=== PATIENT | male | born 1995 | race Caucasian/White ===

== ENCOUNTER 2020-01-31 07:22 | Inpatient (IN) | payer OTHER, SELFPAY ==
[~2020-01-31] VITALS: Ht 172.7 cm; Wt 104.3 kg
[2020-01-31 07:33] VITALS: BP 101/67
[2020-01-31] MEDS ORDERED: LORazepam 2 MG/ML VIAL IM ONE (08:00)
--- NOTE | 2020-01-31 08:00 | NUR ---
C/O ANXIETY ATTACK. STATES HE HAS A NON-PRODUCTIVE COUGH AND HE HAS BEEN MORE CONCERNED ABOUT COVID. PT STATES HE HAS AN APPT FOR COVID TESTING TODAY THAT HE NEEDS DONE FOR WORK.DENIES CP/SOB. DENIES COVID EXPOSURE TO HIS KNOWLEDGE. PT SPEAKING IN FAST SENTENCES HAVING TO CATCH BREATH BETWEEN SENTENCE. NO PMH NKA
--- NOTE | 2020-01-31 08:01 | NUR ---
LUNGS CLEAR BILTERALLY. PT PLACED ON 2 L NC
--- NOTE | 2020-01-31 08:12 | NUR ---
RT AT BEDSIDE FOR ABGS
--- NOTE | 2020-01-31 08:12 | NUR ---
ATIVAN IM ADMINISTERED
[2020-01-31] MEDS ORDERED: ALBUTEROL HFA MDI 90 MCG/ACTUATION 8 GM INH ONE (08:35)
--- NOTE | 2020-01-31 08:47 | NUR ---
LAM CALLED FOR UPDATE [phone]
--- NOTE | 2020-01-31 08:55 | NUR ---
CALLED RT FOR PTS BREATHING TX, STATED SHE WOULD GRAB SPACER AND BE RIGHT OVER.
--- NOTE | 2020-01-31 08:58 | NUR ---
RT AT BEDSIDE FOR BREATHING TX
--- NOTE | 2020-01-31 09:31 | NUR ---
PT RETURNED FROM CT SCAN, PLACED IN COVID ROOM 10, AND SWABBED
--- NOTE | 2020-01-31 09:44 | NUR ---
PT STATES RELIEF FROM BREATHING TX AND ATIVAN
[2020-01-31] MEDS ORDERED: AZITHROMYCIN 500 MG in DEXTROSE 5% 250 ML IV ONE (09:55)
[2020-01-31] MEDS ORDERED: AZITHROMYCIN 500 MG INJ VIAL IV ONE (10:01)
--- NOTE | 2020-01-31 10:25 | NUR ---
LAB AT BEDSIDE.
[2020-01-31 10:39] LABS: BASOPHILS # (AUTO) 0.1 K/uL (0.00-0.22); BASOPHILS % (AUTO) 0.7 % (0.0-2.0); HEMATOCRIT 43.1 % (36-52); HEMOGLOBIN 14.4 g/dL (12.0-18.0); LYMPHOCYTES # (AUTO) 1.1 K/uL (2.0-11.5); LYMPHOCYTES % (AUTO) 14.5 % (20.5-51.1); MEAN CORPUSCULAR HEMOGLOBIN 29 pg (27-31); MEAN CORPUSCULAR HGB CONC 34 g/dL (33-37); MEAN CORPUSCULAR VOLUME 85.7 fL (80-94); MONOCYTES # (AUTO) 0.6 K/uL (0.8-1.0); MONOCYTES % (AUTO) 7.4 % (1.7-9.3); NEUTROPHILS # (AUTO) 5.9 K/uL (1.8-7.7); NEUTROPHILS % (AUTO) 77.4 % (42.2-75.2); PLATELET COUNT (AUTO) 233 K/uL (140-450); RED BLOOD CELL COUNT(AUTO) 5.03 MIL/uL (4.20-6.10); WHITE BLOOD COUNT (AUTO) 7.6 K/uL (4.8-10.8)
--- NOTE | 2020-01-31 10:48 | NUR ---
IV INSERTED AND LABS DRAWN BEDSIDE.
--- NOTE | 2020-01-31 10:48 | NUR ---
PT REPORTS THAT HE TAKE NO HOME MEDICATIONS
[2020-01-31 10:55] LABS: PROTHROMBIN TIME 9.9 secs (10.8-13.4)
[2020-01-31 10:57] LABS: BILIRUBIN,URINE NEGATIVE (NEGATIVE); BLOOD, URINE NEGATIVE (NEGATIVE); COLOR,URINE AMBER (YELLOW); LEUKOCYTE ESTERASE ,URINE NEGATIVE (NEGATIVE); NITRITE, URINE NEGATIVE (NEGATIVE); PH,URINE 7.5 (5.0-9.0); UGLUCOSE NEGATIVE (NEGATIVE)
[2020-01-31 11:00] LABS: APPEARANCE,URINE SLIGHTLY HAZY (CLEAR)
[2020-01-31 11:02] LABS: RBC,URINE 0-5 /HPF (0-5); WBC,URINE 0-5 /HPF (0-5)
[2020-01-31 11:06] LABS: ALBUMIN 3.5 g/dL (3.4-5.0); ANION GAP 15.6 (8-16); CARBON DIOXIDE 25.2 mmol/L (21-32); CREATININE 1.1 mg/dL (0.6-1.3); POTASSIUM 3.8 mmol/L (3.5-5.1); TOTAL BILIRUBIN 0.3 mg/dL (0.0-1.0)
[2020-01-31 11:11] LABS: FIBRINOGEN 500 mg/dL (200-400)
[2020-01-31 11:12] LABS: RSV NEGATIVE (NEGATIVE)
[2020-01-31 11:15] LABS: C-REACTIVE PROTEIN QUANT 8.1 mg/dL (0.0-0.9)
[2020-01-31 12:26] LABS: LACTATE DEHYDROGENASE 332 U/L (85-227)
[2020-01-31] MEDS ORDERED: MORPHINE SULFATE 2 MG/ML SYR IVP PRN (14:10)
[2020-01-31] MEDS ORDERED: ONDANSETRON 4 MG/2 ML VIAL IVP PRN (14:10)
[2020-01-31] MEDS ORDERED: ALBUTEROL 0.083% 2.5 MG/3 ML NEBU INH PRN (14:10)
[2020-01-31] MEDS ORDERED: cefTRIAXone 1,000 MG VIAL ONE (14:50)
--- NOTE | 2020-01-31 14:55 | NUR ---
ROCEPHIN IVPB STARTED
--- NOTE | 2020-01-31 16:00 | NUR ---
PT ALERT AND AWAKE. VS STABLE. EATING FOOD BROUGHT IN BY . DENIES PAIN.
--- NOTE | 2020-01-31 19:15 | NUR ---
REPORT RECEIVED FROM GIRMA ZALDIVAR
--- NOTE | 2020-01-31 19:15 | NUR ---
Haroldo moran in [facility] - 01/31/20 at 1915 by [email or web address] REPORT RECEIVED ELYROM,
--- NOTE | 2020-01-31 19:17 | NUR ---
REPORT TO DEREJE ZALDIVAR, TRANSFER OF CARE
[2020-01-31 19:31] LABS: D-DIMER < 150 ng/ml (0-400)
[2020-01-31 22:10] VITALS: BP 113/73
--- NOTE | 2020-01-31 22:10 | NUR ---
Patient will be admitted to care of DR MILLIGAN. Admited to TELE. Will go to room 119A. Belongings list completed. Report to KATERYNA ZALDIVAR.
--- NOTE | 2020-01-31 22:10 | NUR ---
RECEIVED PT FROM ER VIA SHANTI , REPORT GIVEN AT BED SIDE, PT IS AAOX4 AMBULATORY ON 2 LTS VIA MN, ON TELEMETRY ST, ,113 HR, HL ON LEFT HAND GAUGE # 20, PT IS ORIENTED TO THE FLOOR CALL LIGHT WITHIN REACH. MRSA NARES SWAB PROTOCOL TAKEN AND SENT TO LAB
--- NOTE | 2020-02-01 01:00 | NUR ---
PT HAS BEEN MONITORING CLOSE NOT SOB NOTED ON [id number] ST , NOT SOB NOTED
[2020-02-01 04:00] VITALS: BP 106/54
[2020-02-01] MEDS: ACETAMINOPHEN 325 MG TAB PO PRN ×2 (04:28→11:55)
--- NOTE | 2020-02-01 04:30 | NUR ---
PT HAS FEVER 101 TYLENOL GIVEN AND WILL BE CLOSE MONITORING ON TELE ST
--- NOTE | 2020-02-01 06:00 | NUR ---
PT SLEEPING WELL NOT PAIN , KPT WILL BE ENDORSED TO DAY SHIFT NURSE FOR CONTINUE OF CARE DENIES ANY PAIN NOT FEVER
--- NOTE | 2020-02-01 07:20 | NUR ---
RECEIVED REPORT FROM NIGHTSHIFT NURSE. PT RESTING IN BED ABLE TO MAKE NEEDS KNOWN. RESPIRATIONS EVEN AND UNLABORED WITH NO SOB OR RESPIRATORY DISTRESS. SKIN WARM AND DRY TO TOUCH. IV SITE IN L HAND 20G IS CLEAN, DRY, AND INTACT. SAFETY MEASURES IN PLACE. WILL CONTINUE TO MONITOR
[2020-02-01 07:59] LABS: BASOPHILS % (AUTO) 0.3 % (0.0-2.0); HEMATOCRIT 43.8 % (36-52); HEMOGLOBIN 14.4 g/dL (12.0-18.0); LYMPHOCYTES # (AUTO) 1.9 K/uL (2.0-11.5); LYMPHOCYTES % (AUTO) 21.1 % (20.5-51.1); MEAN CORPUSCULAR HEMOGLOBIN 29 pg (27-31); MEAN CORPUSCULAR HGB CONC 33 g/dL (33-37); MEAN CORPUSCULAR VOLUME 86.8 fL (80-94); MONOCYTES # (AUTO) 0.5 K/uL (0.8-1.0); MONOCYTES % (AUTO) 5.4 % (1.7-9.3); NEUTROPHILS # (AUTO) 6.7 K/uL (1.8-7.7); NEUTROPHILS % (AUTO) 73.2 % (42.2-75.2); PLATELET COUNT (AUTO) 242 K/uL (140-450); RED BLOOD CELL COUNT(AUTO) 5.05 MIL/uL (4.20-6.10); RED CELL DISTRIBUTION WIDTH 14.2 % (11.6-13.7); WHITE BLOOD COUNT (AUTO) 9.1 K/uL (4.8-10.8)
[2020-02-01 08:00] VITALS: BP 137/84
[2020-02-01 08:10] LABS: CARBON DIOXIDE 28.8 mmol/L (21-32); CREATININE 1.3 mg/dL (0.6-1.3); POTASSIUM 3.8 mmol/L (3.5-5.1)
[2020-02-01] MEDS ORDERED: ENOXAPARIN 40 MG/0.4 ML SYR SUBQ SCH (09:00)
[2020-02-01] MEDS: AZITHROMYCIN 500 MG in DEXTROSE 5% 250 ML IV SCH (09:00)
--- NOTE | 2020-02-01 10:01 | NUR ---
CRIMINAL INVESTIGATOR NOTE: Patient's Orientation Person Situation Place Time Information Provided By ANTWON TATE Comments SW WAS UNABLE TO MEET PATIENT AT BEDSIDE DUE TO MEDICAL CONDITION. Assistant Professor Surgical Technology, Realtionship and Phone Number ANTWON TATE MOTHER [phone] Healthcare Power of Laundry Machine Tender No Does Patient Have a POLST No Identifying Problems No Social Work Triggers Is A Social Work Consult Needed No Mandate Report Filed No Explanation Of Identifying Problems PATIENT IS A 25-YEAR-OLD MALE ADMITTED FOR MULTIFOCAL PNEUMONIA. PATIENT HAS PMHX OF ASTHMA. Admitted From Home Pre-Admission Level Of Functioning Status Independent/Ambulatory Prior Resources/Services Used In Last 12 Months No Prior Resources Used Prior DME No Prior DME Used Living Situation Apartment Lives With Family Patient Had Caregiver No Home Support No Caregiver Issues Financial Issues No Known Financial Issue Referral To The Financial Counselor Needed No Factors/Needs No D/C Needs Identified Pt/Rep Participated In Discharge Plan Yes Patient/Family Agress With Discharge Plan Yes Discharge Plan Comments TENTATIVE DISCHARGE PLAN IS FOR PATIENT TO RETURN HOME. DC Plan Status Initiated
--- NOTE | 2020-02-01 10:15 | NUR ---
ADMINISTERED SCHED MED PRESCRIBED PER MD ORDER. PT TOLERATED WELL. MEDICATION EDUCATION PERFORMED. PT VERBALIZED UNDERSTANDING. SAFETY MEASURES IN PLACE. WILL CONTINUE TO MONITOR
--- NOTE | 2020-02-01 10:26 | NUR ---
PATIENT HAS BEEN SCREENED AND CATEGORIZED LOW NUTRITION RISK. PATIENT WILL BE SEEN WITHIN 7 DAYS OF ADMISSION. 02/07/[address]
[2020-02-01 12:00] VITALS: BP 129/84
--- NOTE | 2020-02-01 12:02 | NUR ---
PT HAS 101.9 FEVER. TYLENOL ADMINISTERED PRESCRIBED PER MD ORDER. PT TOLERATED WELL. MEDICATION EDUCATION PERFORMED. PT VERBALIZED UNDERSTANDING. SAFETY MEASURES IN PLACE. WILL CONTINUE TO MONITOR
[2020-02-01] MEDS ORDERED: ALBUTEROL HFA MDI 90 MCG/ACTUATION 8 GM INH PRN (12:55)
[2020-02-01] MEDS: predniSONE 20 MG TAB PO SCH (13:03)
--- NOTE | 2020-02-01 13:03 | NUR ---
ADMINISTERED SCHED MED PRESCRIBED PER MD ORDER. PT TOLERATED WELL. MEDICATION EDUCATION PERFORMED. PT VERBALIZED UNDERSTANDING. SAFETY MEASURES IN PLACE. WILL CONTINUE TO MONITOR
--- NOTE | 2020-02-01 13:33 | NUR ---
RECEIVED CALL FROM CHEMISTRY THAT PATIENT IS POSITIVE FOR COVID 19. REPORTED TO DR. MILLIGAN AND RECEIVED ORDERS. PT IS AWARE OF RESULTS WELL. SAFETY MEASURES IN PLACE. WILL CONTINUE TO MONITOR
[2020-02-01] MEDS ORDERED: ENOXAPARIN 60 MG/0.6 ML SYR SUBQ SCH (14:03)
--- NOTE | 2020-02-01 14:52 | NUR ---
ADMINISTERED SCHED MED PRESCRIBED PER MD ORDER. PT TOLERATED WELL. MEDICATION EDUCATION PERFORMED. PT VERBALIZED UNDERSTANDING. SAFETY MEASURES IN PLACE. WILL CONTINUE TO MONITOR
[2020-02-01 16:00] VITALS: BP 125/74
[2020-02-01] MEDS: HYDROcodone/APAP 5/325 MG 1 TAB TAB PO PRN (16:18)
--- NOTE | 2020-02-01 16:18 | NUR ---
PT COMPLAINED OF A MODERATE HEADACHE. PRN NORCO ADMINISTERED PRESCRIBED PER MD ORDER. PT TOLERATED WELL. MEDICATION EDUCATION PERFORMED. PT VERBALIZED UNDERSTANDING. SAFETY MEASURES IN PLACE. WILL CONTINUE TO MONITOR
--- NOTE | 2020-02-01 18:04 | NUR ---
PT RESTING IN BED. ABLE TO MAKE NEEDS KNOWN. RESPIRATIONS EVEN AND UNLABORED WITH NO SOB OR RESPIRATORY DISTRESS. SAFETY MEASURES IN PLACE. WILL CONTINUE TO MONITOR
--- NOTE | 2020-02-01 19:14 | NUR ---
ENDORSED TO NIGHTSHIFT NURSE FOR CONTINUITY OF CARE. PT IS STABLE
--- NOTE | 2020-02-01 19:15 | NUR ---
RECEIVED PT ON BED, AAOX4, ABLE TO MAKE NEEDS KNOWN, NO RESP DISTRESS NOTED, ON O2 AT 2L NC WITH SAT-94%, IVF INFUSING WELL AT TKO RATE, DENIES ANY PAIN, MAINTAINED ON DROPLET ISOLATION FOR COVID POSITIVE, PT WEARING FACE MASK, CALL LIGHT WITHIN REACH.
[2020-02-01 20:00] VITALS: BP 98/56
[2020-02-01] MEDS: ENOXAPARIN 100 MG/ML SYR SUBQ SCH (20:22)
--- NOTE | 2020-02-01 21:18 | NUR ---
RECEIVED REPORT FROM AM SHIFT. PT SEEN AND ASSESSED. PT IS IN NO APPARENT RESPIRATORY DISTRESS AT THIS TIME. PT ON 2L NC WITH SPO2 OF 92% AND CLEAR/DIMINISHED BS ON AUSCULTATION. PRN TX NOT INDICATED AT THIS TIME. PT WAS INFORMED TO CALL FOR PRN TX IF EXPERIENCING SOB. WILL CONTINUE TO MONITOR PT. PT WAS ASSISTED INTO PRONE POSITION. RN NOTIFIED.
[2020-02-02] VITALS: BP 114/73
--- NOTE | 2020-02-02 01:23 | NUR ---
ROUNDS MADE, SEEN PT SLEEPING, NO RESP DISTRESS NOTED, NO SIGNS OF PAIN, MONITORED CLOSELY.
[2020-02-02] MEDS: HYDROcodone/APAP 5/325 MG 1 TAB TAB PO PRN (02:43)
--- NOTE | 2020-02-02 02:45 | NUR ---
PT SEEN AWAKE SITTING UP ON BED, COMPLAINING OF HEADACHE AND REQUESTING FOR INHALER, NO RESP DISTRESS NOTED, MEDICATED WITH NORCO FOR HEADACHE AND NOTIFIED RT SABIANIST FOR THE INHALER, MONITORED CLOSELY.
[2020-02-02 04:00] VITALS: BP 106/57
[2020-02-02] MEDS: ACETAMINOPHEN 325 MG TAB PO PRN ×2 (04:02→09:39)
--- NOTE | 2020-02-02 04:02 | NUR ---
PT SLEEPING, EASILY AROUSABLE, VITAL SIGNS TAKEN, TEMP-100.2, DENIES ANY PAIN, NO SOB NOTED, O2 SAT-91% ON 2L NC, MEDICATED PRN WITH TYLENOL, MONITORED CLOSELY.
--- NOTE | 2020-02-02 06:00 | NUR ---
SEEN PT SLEEPING, NO SIGNS OF DISTRESS, CONTINUE ON O2 2L NC, MONITORED CLOSELY.
--- NOTE | 2020-02-02 07:12 | NUR ---
PT SLEEPING, NO SIGNS OF DISTRESS, REPORT GIVEN TO ZEN HOWARD FOR CONTINUITY OF CARE.
--- NOTE | 2020-02-02 07:17 | NUR ---
RECEIVED REPORT FROM NIGHTSHIFT NURSE. PT RESTING IN BED. ABLE TO MAKE NEEDS KNOWN. RESPIRATIONS EVEN AND UNLABORED WITH NO SOB OR RESPIRATORY DISTRESS. SKIN WARM AND DRY TO TOUCH. IV SITE IN L HAND 22G IS CLEAN, DRY, AND INTACT. SAFETY MEASURES IN PLACE. WILL CONTINUE TO MONITOR
[2020-02-02 08:00] VITALS: BP 108/65
[2020-02-02] MEDS: AZITHROMYCIN 500 MG in DEXTROSE 5% 250 ML IV SCH (09:37)
[2020-02-02] MEDS: predniSONE 20 MG TAB PO SCH (09:39)
[2020-02-02] MEDS: ENOXAPARIN 100 MG/ML SYR SUBQ SCH ×2 (09:40→20:04)
--- NOTE | 2020-02-02 09:40 | NUR ---
ADMINISTERED SCHED MED PRESCRIBED PER MD ORDER. PT TOLERATED WELL. MEDICATION EDUCATION PERFORMED. PT VERBALIZED UNDERSTANDING. SAFETY MEASURES IN PLACE. WILL CONTINUE TO MONITOR
--- NOTE | 2020-02-02 11:15 | NUR ---
PT CALLED AND NEEDED SOME MORE WATER. PT RESTING IN BED. ABLE TO MAKE NEEDS KNOWN. RESPIRATIONS EVEN AND UNLABORED WITH NO SOB OR RESPIRATORY DISTRESS. SKIN WARM AND DRY TO TOUCH. SAFETY MEASURES IN PLACE. WILL CONTINUE TO MONITOR
[2020-02-02 12:00] VITALS: BP 98/54
--- NOTE | 2020-02-02 13:05 | NUR ---
HOURLY ROUNDING. PT RESTING IN BED. ABLE TO MAKE NEEDS KNOWN. RESPIRATIONS EVEN AND UNLABORED WITH NO SOB OR RESPIRATORY DISTRESS. SKIN WARM AND DRY TO TOUCH. SAFETY MEASURES IN PLACE. WILL CONTINUE TO MONITOR
--- NOTE | 2020-02-02 15:10 | NUR ---
ADMINISTERED SCHED MED PRESCRIBED PER MD ORDER. PT TOLERATED WELL. MEDICATION EDUCATION PERFORMED. PT VERBALIZED UNDERSTANDING. SAFETY MEASURES IN PLACE. WILL CONTINUE TO MONITOR
[2020-02-02 16:00] VITALS: BP 124/68
--- NOTE | 2020-02-02 16:45 | NUR ---
STARTED WEANING PT OFF OF OXYGEN ACCORDING TO DR. MILLIGAN ORDER'S. TOOK NC OFF PATIENT FOR 15 MIN AND PATIENT STAYED BETWEEN 87-91%. PUT PT ON 1L NC. SAFETY MEASURES IN PLACE. WILL CONTINUE TO MONITOR
--- NOTE | 2020-02-02 19:10 | NUR ---
ENDORSED TO NIGHTSHIFT FOR CONTINUITY OF CARE. PT IS STABLE
--- NOTE | 2020-02-02 19:11 | NUR ---
RECEIVED REPORT FROM DAY SHIFT NURSE, ANITA. PT RESTING IN BED. ABLE TO MAKE NEEDS KNOWN. RESPIRATIONS EVEN AND UNLABORED WITH 1LPM O2 VIA NC. NO SOB OR RESPIRATORY DISTRESS. SKIN WARM AND DRY TO TOUCH. IV SITE IN L HAND 22G, PATENT, INTACT, AND ASYMPTOMATIC. SAFETY MEASURES IN PLACE. WILL CONTINUE TO MONITOR.
[2020-02-02 20:00] VITALS: BP 107/69
--- NOTE | 2020-02-02 20:04 | NUR ---
GIVEN LOVENOX MD ORDERED. PT TOLERATED WELL.
[2020-02-03] VITALS: BP 106/60
--- NOTE | 2020-02-03 00:01 | NUR ---
VS WITHIN PT'S BASELINE. WILL CONTINUE TO MONITOR.
--- NOTE | 2020-02-03 02:05 | NUR ---
PT SLEEPING COMFORTABLY. NO ACUTE DISTRESS NOTED.
[2020-02-03 04:00] VITALS: BP 114/63
--- NOTE | 2020-02-03 04:04 | NUR ---
VS CHECKED, WITHIN PT'S BASELINE. WILL CONTINUE TO MONITOR.
--- NOTE | 2020-02-03 06:49 | NUR ---
PT IN STABLE CONDITION. WILL ENDORSE TO DAY SHIFT NURSE.
--- NOTE | 2020-02-03 07:15 | NUR ---
RECEIVED PATIENT FROM HEMATOLOGY NURSE NURSE FOR CONTINUITY OF CARE. PATIENT IS ASLEEP. RESPIRATIONS EVEN AND UNLABORED. ON 2L O2 VIA NC. NO SIGNS OF RESPIRATORY DISTRESS. VISIBLE CHEST RISE AND FALL NOTED. ON TELE MONITORING. ON A REGULAR DIET. SKIN WARM, DRY, AND INTACT. IV IN THE L HAND G22 TKO TO NS AT 10 ML/HR. IVF RUNNING WELL. AMBULATORY. DROPLET PRECAUTION FOR COVID-19.CONTINENT. SAFETY MEASURES IN PLACE. BED IN LOW POSITION. CALL LIGHT IS WITHIN REACH. WILL CONTINUE TO MONITOR.
[2020-02-03 08:00] VITALS: BP 115/67
[2020-02-03] MEDS: AZITHROMYCIN 500 MG in DEXTROSE 5% 250 ML IV SCH (08:10)
[2020-02-03] MEDS: ENOXAPARIN 100 MG/ML SYR SUBQ SCH ×2 (08:12→20:32)
[2020-02-03] MEDS: predniSONE 20 MG TAB PO SCH (08:14)
--- NOTE | 2020-02-03 08:30 | NUR ---
GIVEN MORNING MEDICATION PO. LOVENOX SUBQ IN THE RIGHT UPPER ARM. PATIENT TOLERATED WELL. HUNG ZITHROMAX IVPB. GIVEN MEDICATION EDUCATION. WILL CONTINUE TO MONITOR.
--- NOTE | 2020-02-03 09:58 | NUR ---
MADE ROUNDS. PATIENT IS AWAKE AND TEXTING. NO SIGNS OF DISTRESS NOTED. DENIES CHEST PAIN, SOB, PAIN, DISCOMFORT. WILL CONTINUE TO MONITOR
--- NOTE | 2020-02-03 11:33 | NUR ---
TRANSFERRED ROOM FROM 119A TO 121 A D/T RESTROOM MALFUNCTION.
--- NOTE | 2020-02-03 11:54 | NUR ---
TRANSFERRED ROOM FROM 119B TO 114 D/T RESTROOM MALFUNCTION Addendum: 02/03/20 at 1200 by Princess Mi Armando RN WRONG PATIENT. PLEASE DISREGARD
[2020-02-03 12:00] VITALS: BP 126/77
--- NOTE | 2020-02-03 12:34 | NUR ---
PATIENT IS ASKING IF HE IS GOING TO BE DISCHARGED TODAY. I INFORMED DR. PARMAR WILL SPEAK TO HIM WHEN HE ROUNDS. HE WILL LIKELY STAY D/T O2 SUPPLEMENTATION NEED PER DR. PARMAR Addendum: 02/03/20 at 1241 by Princess Mi Armando RN ALSO INFORMED DR. PARMAR FOR LAB ORDERS
--- NOTE | 2020-02-03 14:00 | NUR ---
DC PLANNING: PATIENT HAS ORDER FOR HOME O2 FAXED TO [facility] JOSE TO FOLLOW Addendum: 02/03/20 at 1427 by No Nunez CM DC PLANNING: O2 SAT CHECKED WITH ROOM AIR O2 SAT 93% PER DM PROTOCOL NOT QUALIFIED FOR HOME O2. Addendum: 02/03/20 at 1632 by No Nunez CM DC PLANNING RECEIVED A CALL FROM PATHEOS [phone] SPOKE WITH [facility] THOMPSON WILL DELIVER THE PORTABLE O2 AT THE HOSPITAL WITH IN 1-2 HRS NOTIFIED PRINCESS KO
--- NOTE | 2020-02-03 14:04 | NUR ---
WEANED PATIENT TO ROOM AIR. O2SAT 93%
--- NOTE | 2020-02-03 14:40 | NUR ---
CHECKED PATIENT AGAIN ON ROOM AIR. O2SAT 86-87%. WILL NOTIFY GIFTY Addendum: 02/03/20 at 1443 by Princess Mi Armando RN PLACED BACK ON 2L O2 VIA NC, O2SAT WENT UP TO 92%
--- NOTE | 2020-02-03 15:10 | NUR ---
HUNG ROCEPHIN VIA IVPB. GIVEN MEDICATION EDUCATION. O2SAT 93% ON 2L O2 VIA NC. NO SIGNS OF RESPIRATORY DISTRESS NOTED. BED IN LOW POSITION. CALL LIGHT IS WITHIN REACH. WILL CONTINUE TO MONITOR
[2020-02-03 16:00] VITALS: BP 108/68
--- NOTE | 2020-02-03 17:49 | NUR ---
RECEIVED HOME OXYGEN. WILL PAGE DR. PARMAR IF PATIENT IS BEING DC.
--- NOTE | 2020-02-03 18:13 | NUR ---
AWAITING CALL BACK FROM DOCTOR AGATA IF PATIENT WILL BE DC TONIGHT OR TOMORROW
--- NOTE | 2020-02-03 19:23 | NUR ---
ENDORSED PATIENT TO THE ASSOCIATE PROFESSOR OF MEDICINE NURSE FOR CONTINUITY OF CARE. PATIENT IS IN STABLE CONDITION
--- NOTE | 2020-02-03 19:24 | NUR ---
RECEIVED BEDSIDE SHIFT REPORT FROM DAY SHIFT NURSE. PATIENT IS IN BED RESTING. PT IS AAOX4, AMBULATORY, AND ABLE TO MAKE NEEDS KNOWN. RESPIRATIONS EVEN AND UNLABORED. PT ON O2 2LPM/NC. PT IS COVID POSITIVE, DROPLET PRECAUTIONS OBSERVED AT ALL TIMES. SKIN IS WARM, DRY, AND INTACT. ABDOMEN IS SOFT AND NON-TENDER. IV ACCESS ON LEFT HAND G22 PATENT AND INTACT. IVF INFUSING WELL TKO. PLAN OF CARE DISCUSSED, PT VERBALIZED UNDERSTANDING. PT DENIES ANY PAIN OR DISCOMFORT AT THIS TIME. NO REQUESTS MADE. SAFETY MEASURES IN PLACE. CALL LIGHT WITHIN REACH. WILL CONTINUE TO MONITOR.
[2020-02-03 20:00] VITALS: BP 111/66
--- NOTE | 2020-02-03 20:32 | NUR ---
VITAL SIGNS STABLE. O2 IN PLACE. RESPIRATIONS EVEN AND UNLABORED. O2 SAT 97%. SCHEDULED MEDICATION GIVEN ORDERED. PT DENIES ANY PAIN OR DISCOMFORT AT THIS TIME. PT KEPT COMFORTABLE. CALL LIGHT WITHIN REACH. WILL CONTINUE TO MONITOR.
--- NOTE | 2020-02-03 22:10 | NUR ---
PT IN BED WATCHING TV WITH HOB ELEVATED. O2 IN PLACE. PT NOT IN DISTRESS. NO REQUESTS MADE AT THIS TIME. PT KEPT COMFORTABLE. CALL LIGHT WITHIN REACH. WILL CONTINUE TO MONITOR.
--- NOTE | 2020-02-03 23:57 | NUR ---
VITAL SIGNS STABLE. PT IN BED WATCHING TV WITH HOB ELEVATED. O2 IN PLACE. RESPIRATIONS EVEN AND UNLABORED. CURRENT O2 SAT 92%. DENIES ANY PAIN OR DISCOMFORT. PT KEPT COMFORTABLE. CALL LIGHT WITHIN REACH. WILL CONTINUE TO MONITOR.
[2020-02-04] VITALS: BP 113/69
--- NOTE | 2020-02-04 02:01 | NUR ---
PT ASLEEP. O2 IN PLACE. VISIBLE CHEST RISE AND FALL NOTED. NO S/SX OF DISTRESS. PT KEPT COMFORTABLE. SAFETY MEASURES IN PLACE. CALL LIGHT WITHIN REACH. WILL CONTINUE TO MONITOR.
[2020-02-04 04:00] VITALS: BP 96/64
--- NOTE | 2020-02-04 04:09 | NUR ---
VITAL SIGNS STABLE. PT IN BED WITH HOB ELEVATED. O2 IN PLACE. O2 SAT 91%. PT NOT IN DISTRESS. DENIES ANY PAIN OR DISCOMFORT. STILL WITH INTERMITTENT DRY COUGH. NO REQUESTS MADE. PT KEPT COMFORTABLE. SAFETY MEASURES IN PLACE. CALL LIGHT WITHIN REACH. WILL CONTINUE TO MONITOR.
--- NOTE | 2020-02-04 06:04 | NUR ---
PT ASLEEP. O2 IN PLACE. PT NOT IN DISTRESS. NOTED VISIBLE CHEST RISE AND FALL. PT KEPT COMFORTABLE. CALL LIGHT WITHIN REACH. WILL CONTINUE TO MONITOR.
--- NOTE | 2020-02-04 07:05 | NUR ---
GAVE BEDSIDE REPORT TO DAY SHIFT NURSE FOR CONTINUITY OF CARE. PATIENT IS IN STABLE CONDITION.
--- NOTE | 2020-02-04 07:06 | NUR ---
RECEIVED PATIENT FROM PERFORMANCE ENGINEER NURSE FOR CONTINUITY OF CARE. PATIENT IS ASLEEP. RESPIRATIONS EVEN AND UNLABORED. ON 2L O2 VIA NC. NO SIGNS OF RESPIRATORY DISTRESS. VISIBLE CHEST RISE AND FALL NOTED. ON TELE MONITORING. ON A REGULAR DIET. SKIN WARM, DRY, AND INTACT. IV IN THE L HAND G22 SALINE LOCK. AMBULATORY. DROPLET PRECAUTION FOR COVID-19. CONTINENT. SAFETY MEASURES IN PLACE. BED IN LOW POSITION. CALL LIGHT IS WITHIN REACH. WILL CONTINUE TO MONITOR.
[2020-02-04 08:00] VITALS: BP 125/71
[2020-02-04] MEDS: AZITHROMYCIN 500 MG in DEXTROSE 5% 250 ML IV SCH (08:12)
[2020-02-04] MEDS: predniSONE 20 MG TAB PO SCH (08:13)
[2020-02-04] MEDS: ENOXAPARIN 100 MG/ML SYR SUBQ SCH (08:14)
--- NOTE | 2020-02-04 08:20 | NUR ---
GIVEN MORNING MEDICATION PO. LOVENOX SUBQ IN THE RIGHT UPPER ARM. PATIENT TOLERATED WELL. HUNG ZITHROMAX IVPB. GIVEN MEDICATION EDUCATION. WILL CONTINUE TO MONITOR.
--- NOTE | 2020-02-04 10:41 | NUR ---
PATIENT IS SITTING UP IN BED TEXTING. PATIENT DENIES PATIENT PAIN AND SOB. WILL CONTINUE TO MONITOR
[2020-02-04 12:00] VITALS: BP 130/74
--- NOTE | 2020-02-04 12:16 | NUR ---
SPOKE TO DR. PARMAR. MADE AWARE THAT HOME OXYGEN IS HERE. HE SAID TO DISCHARGE PATIENT AND INSTRUCTED FOR PATIENT TO TAKE BABY ASPIRIN FOR 2 WEEKS AND F/U WITH PCP. PATIENT AWARE. PATIENT STATED HE WILL EAT FIRST.
--- NOTE | 2020-02-04 12:27 | NUR ---
PAGED DR. PARMAR TO INFORM HOME OXYGEN IS RECEIVED AND SEE IF PATIENT CAN BE DISCHARGED
[2020-02-04 12:31] VITALS: BP 125/71
--- NOTE | 2020-02-04 12:50 | NUR ---
PATIENT IS EATING LUNCH AT THIS TIME
--- NOTE | 2020-02-04 14:00 | NUR ---
GIVEN DISCHARGE INSTRUCTIONS: TAKE BABY ASPIRIN FOR 2 WEEKS. CHECK FOR ANY SIGNS OF BLEEDING AND BRUISING D/T ASPIRIN INTAKE. F/U WITH PCP WITHIN ONE WEEK. IF SYMPTOMS WORSENS, CALL 911 OR GO TO ED. SELF ISOLATE. WASH HANDS. DO NOT SHARE ROOM WITH OTHERS. GIVEN HOME INSTRUCTIONS FOR COVID. PATIENT VERBALIZED UNDERSTANDING
--- NOTE | 2020-02-04 14:01 | NUR ---
DISCONTINUED IV SITE. PRESSED FOR 5-10 MINUTES D/T PATIENT BEING ON ANTICOAGULANT. REMOVED ID BAND. UP TO DATE WITH VACCINATIONS
--- NOTE | 2020-02-04 14:10 | NUR ---
DISCHARGED PATIENT ON FOOT. HOME OXYGEN WITH PATIENT. PATIENT STATED HE DOES NOT FEEL LIKE USING THE O2 TANK AT THIS THIS, PATIENT WAS ROOM AIR ON THE WAY TO THE LOBBY. NO SIGNS OF DISTRESS NOTED. PATIENT IS IN STABLE CONDITION
== END 2020-02-04 14:10 | disposition home or self-care (01) | DRG 137 ==
LOC: MED 07:22 → EEVIPCON 07:22 → MTU 14:20
PROVIDERS: ADMIT Hospitalist; ATTEND Hospitalist
DX: U07.1 COVID-19 (principal); J96.01 Acute respiratory failure with hypoxia; J45.901 Unspecified asthma with (acute) exacerbation; J18.9 Pneumonia, unspecified organism; F41.9 Anxiety disorder, unspecified; R00.0 Tachycardia, unspecified; E66.9 Obesity, unspecified; Z68.35 Body mass index [BMI] 35.0-35.9, adult
CPT/HCPCS: 36415; 36600; 71045; 71250; 80048; 80053; 81001; 82550; 82728; 82803; 83605; 83615; 83880; 84484; 85025; 85379; 85384; 85610; 85730; 86140; 87040; 87081; 87086; 87420; 87804; 94664; 96365; 96367; 96372; 99291; J0456; J0696; J1650; J2060; J7030; J7060; J7512; Q0092; U0003-CS

== ENCOUNTER 2022-05-01 12:34 | Emergency (ER) | payer OTHER ==
[~2022-05-01] VITALS: Ht 165.1 cm; Wt 86.2 kg
[2022-05-01 12:36] VITALS: BP 127/85
--- NOTE | 2022-05-01 12:39 | NUR ---
Patient ambulated with steady gait to bed 1.
--- NOTE | 2022-05-01 13:06 | NUR ---
PT C/O RECTAL BLEEDING NOTED IN STOOL AND AFTER WIPING THIS AM, HX OF HEMORRHOIDS STATES RAN OUT OF STOOL SOFTENERS
[2022-05-01] MEDS ORDERED: DOCU-299 PO ×2 (13:33→13:39)
[2022-05-01 13:40] VITALS: BP 127/85
--- NOTE | 2022-05-01 13:40 | NUR ---
Patient discharged with v/s stable. Written and verbal after care instructions given and explained. Patient alert, oriented and verbalized understanding of instructions. Ambulatory with steady gait. All questions addressed prior to discharge. ID band removed. Patient advised to follow up with PMD. Rx of Docusate Sodium given. Patient educated on indication of medication including possible reaction and side effects. Opportunity to ask questions provided and answered.
== END 2022-05-01 13:40 | disposition home or self-care (01) ==
LOC: MED 12:34
DX: K64.4 Residual hemorrhoidal skin tags (principal); J45.909 Unspecified asthma, uncomplicated; Z79.899 Other long term (current) drug therapy
CPT/HCPCS: 99282

== ENCOUNTER 2022-08-16 11:57 | Emergency (ER) | payer OTHER ==
[~2022-08-16] VITALS: Ht 167.6 cm; Wt 113.9 kg
[~2022-08-16 11:57] MED LIST: DOCU-299 PO
[2022-08-16 12:01] VITALS: BP 153/85
--- NOTE | 2022-08-16 12:30 | NUR ---
HERE FOR ANXIETY, DENIES ANY PAIN, PA AT BS
[2022-08-16 12:58] VITALS: BP 132/72
--- NOTE | 2022-08-16 12:58 | NUR ---
Patient discharged with v/s stable. Written and verbal after care instructions given and explained. Patient verbalized understanding. Ambulatory with steady gait. All questions addressed prior to discharge. Advised to follow up with PMD. DENIES ANY PAIN
== END 2022-08-16 12:58 | disposition home or self-care (01) ==
LOC: MED 11:57
DX: F41.9 Anxiety disorder, unspecified (principal); R06.02 Shortness of breath; J45.909 Unspecified asthma, uncomplicated; Z79.899 Other long term (current) drug therapy
CPT/HCPCS: 99281

== ENCOUNTER 2023-05-27 06:05 | Emergency (ER) | payer OTHER ==
[~2023-05-27] VITALS: Ht 167.6 cm; Wt 98.0 kg
[2023-05-27 06:40] VITALS: BP 134/72; PULSE 96; RESP 18; TEMP 97.8; O2SAT 95
[2023-05-27] MEDS ORDERED: NACL 0.9% 1,000 ML IV ONE (07:15)
[2023-05-27] MEDS ORDERED: KETOROLAC 30 MG/ML VIAL IVP ONE (07:15)
[2023-05-27 07:30] LABS: APPEARANCE,URINE CLEAR (CLEAR); BILIRUBIN,URINE NEGATIVE (NEGATIVE); BLOOD, URINE TRACE-I (NEGATIVE); COLOR,URINE YELLOW (YELLOW); LEUKOCYTE ESTERASE ,URINE NEGATIVE (NEGATIVE); NITRITE, URINE NEGATIVE (NEGATIVE); PROTEIN,URINE 1+ (NEGATIVE); UGLUCOSE NEGATIVE (NEGATIVE); UROBILINOGEN,URINE 0.2 EU/dL (0.2 - 1)
[2023-05-27 07:40] LABS: BACTERIA,URINE FEW /HPF (None Seen); RBC,URINE 0-5 /HPF (0-5); SQUAMOUS EPITHELIAL CELL,UR 0-3 (FEW) /LPF (0-3 (FEW)); WBC,URINE 0-5 /HPF (0-5)
[2023-05-27] MEDS ORDERED: KETOROLAC 60 MG/2 ML VIAL IM ONE (07:45)
[2023-05-27 07:49] VITALS: TEMP 97.8
[2023-05-27] MEDS ORDERED: IBUP-2213 PO (07:50)
[2023-05-27 08:22] VITALS: BP 135/74; PULSE 78; RESP 14; O2SAT 99
== END 2023-05-27 08:25 | disposition home or self-care (01) ==
LOC: MED 06:05
DX: R10.9 Unspecified abdominal pain (principal); E11.9 Type 2 diabetes mellitus without complications; Z90.49 Acquired absence of other specified parts of digestive tract; Z79.899 Other long term (current) drug therapy
CPT/HCPCS: 81001; 96372; 99283; J1885

== ENCOUNTER 2023-06-26 11:45 | Emergency (ER) | payer OTHER ==
[~2023-06-26] VITALS: Ht 167.6 cm; Wt 127.6 kg
[~2023-06-26 11:45] MED LIST changes: +IBUP-2213 PO
[2023-06-26 12:20] VITALS: BP 126/88; PULSE 90; RESP 20; TEMP 98.5; O2SAT 96
[2023-06-26] MEDS ORDERED: ACETAMINOPHEN EXTRA STRENGTH 500 MG TAB PO ONE (12:45)
[2023-06-26 13:25] LABS: FLU A ANTIGEN negative (NEGATIVE); FLU B ANTIGEN NEGATIVE (NEGATIVE)
[2023-06-26] MEDS ORDERED: ACET-10509 PO (13:45)
[2023-06-26] MEDS ORDERED: IBUP-2213 PO (13:45)
[2023-06-26 14:00] VITALS: BP 125/80; PULSE 85; RESP 19; TEMP 97.9; O2SAT 98
== END 2023-06-26 14:00 | disposition home or self-care (01) ==
LOC: MED 11:45
DX: J06.9 Acute upper respiratory infection, unspecified (principal); Z20.822 Contact with and (suspected) exposure to COVID-19; E11.9 Type 2 diabetes mellitus without complications; Z79.4 Long term (current) use of insulin; Z79.899 Other long term (current) drug therapy
CPT/HCPCS: 99283

== ENCOUNTER 2023-11-14 11:23 | Emergency (ER) | payer OTHER ==
[~2023-11-14] VITALS: Ht 165.1 cm; Wt 126.6 kg
[~2023-11-14 11:23] MED LIST changes: +ACET-10509 PO
[2023-11-14 11:36] VITALS: BP 133/78; PULSE 83; RESP 18; TEMP 98.3; O2SAT 96
[2023-11-14] MEDS ORDERED: OXYM20SP1 NS (11:59)
== END 2023-11-14 12:15 | disposition home or self-care (01) ==
LOC: MED 11:23
DX: F43.9 Reaction to severe stress, unspecified (principal); E66.9 Obesity, unspecified; G47.30 Sleep apnea, unspecified; E11.9 Type 2 diabetes mellitus without complications; R51.9 Headache, unspecified; Z68.42 Body mass index [BMI] 45.0-49.9, adult; Z79.1 Long term (current) use of non-steroidal anti-inflammatories (NSAID); Z79.899 Other long term (current) drug therapy
CPT/HCPCS: 99282

== ENCOUNTER 2024-03-05 21:26 | Emergency (ER) | payer OTHER ==
[~2024-03-05] VITALS: Ht 167.6 cm; Wt 138.3 kg
[~2024-03-05 21:26] MED LIST changes: -ACET-10509 PO; +ACET500T99 PO; +OXYM20SP1 NS
[2024-03-05 21:31] VITALS: BP 159/94; PULSE 74; RESP 14; TEMP 97.9; O2SAT 99
[2024-03-05] MEDS ORDERED: SUD30 PO (21:46)
[2024-03-05] MEDS ORDERED: CETI-24 PO (21:46)
[2024-03-05] MEDS ORDERED: FLONAS NS (21:46)
[2024-03-05 22:09] LABS: FLU A ANTIGEN negative (NEGATIVE); FLU B ANTIGEN negative (NEGATIVE)
== END 2024-03-05 21:54 | disposition home or self-care (01) ==
LOC: MED 21:26
DX: B34.9 Viral infection, unspecified (principal); E11.9 Type 2 diabetes mellitus without complications; Z20.822 Contact with and (suspected) exposure to COVID-19; Z79.1 Long term (current) use of non-steroidal anti-inflammatories (NSAID); Z79.899 Other long term (current) drug therapy
CPT/HCPCS: 99283

== ENCOUNTER 2024-03-09 01:58 | Emergency (ER) | payer OTHER ==
[~2024-03-09] VITALS: Ht 165.1 cm; Wt 122.5 kg
[~2024-03-09 01:58] MED LIST changes: +CETI-24 PO; +FLONAS NS; +SUD30 PO
[2024-03-09 02:15] VITALS: BP 129/82; PULSE 82; RESP 16; TEMP 98.7; O2SAT 98
[2024-03-09] MEDS ORDERED: PRED20TA5 PO (04:24)
[2024-03-09] MEDS ORDERED: DIPH25TA53 PO (04:24)
[2024-03-09] MEDS ORDERED: diphenhydrAMINE 50 MG CAP PO ONE (04:26)
[2024-03-09 04:30] VITALS: BP 124/82; PULSE 83; RESP 18; TEMP 98.7; O2SAT 98
[2024-03-09] MEDS: diphenhydrAMINE 50 MG CAP PO ONE (04:30)
== END 2024-03-09 04:30 | disposition home or self-care (01) ==
LOC: MED 01:58
DX: R21 Rash and other nonspecific skin eruption (principal); L29.9 Pruritus, unspecified; E11.9 Type 2 diabetes mellitus without complications; Z90.49 Acquired absence of other specified parts of digestive tract; Z79.899 Other long term (current) drug therapy
CPT/HCPCS: 99283; Q0163